=== PATIENT | male | born 1945 | race Two or more races ===

== ENCOUNTER 2023-11-06 10:24 | Outpatient (CLI) | payer OTHER ==
[~2023-11-06 10:24] MED LIST: ALENDRONATE SOD70 MG PO; ALEVE220 M1 PO; CEFADROXIL500 MG PO; COZAAR25 MG PO; DOCUSATE SODIU100 MG PO; GLIMEPIRIDE2 M1 PO; HUMIBID DM TABLET SA PO; HumaLOG 100 UNIT/1 ML (3ML) SUBCUTANEO; JANUMET 50-1,01 EACH PO; LIPOFEN150 MG PO; Lantus 1000 U/10 ML SUBCUTANEO; MEDROLPACK PO; Mucinex 600 MG TABLET.SA PO; PERCOCET 5/3251 TAB PO; Pulmicort 0.5 MG/2 ML AMPUL IH; SIMVASTATIN80 MG PO; TAMS0.4C PO
== END 2023-11-06 10:53 | disposition home or self-care (01) ==
LOC: TOM 10:24
PROVIDERS: ATTEND Internal Medicine Pulmonary Disease
DX: R06.02 Shortness of breath (principal); J43.2 Centrilobular emphysema